=== PATIENT | female | born 1960 | race Caucasian/White ===

== ENCOUNTER 2019-04-14 07:07 | Emergency (ER) | payer OTHER ==
[~2019-04-14] VITALS: Ht 162.6 cm; Wt 61.6 kg
[2019-04-14 07:09] VITALS: Ht 162.6 cm; Wt 61.6 kg
[2019-04-14] MEDS ORDERED: SOD CHLORIDE 0.9% 1,000 ML IV STA (07:21)
[2019-04-14] MEDS ORDERED: RANI150T35 PO (09:08)
--- NOTE | 2019-04-14 09:08 | ERD ---
ER Documentation Chief Complaint Chief Complaint abdominal pain, diarrhea x 10 ; increased bp HPI This is a 49-year-old female with a history of type 2 diabetes who presents to the emergency room for evaluation of abdominal cramping, diarrhea. The patient states she has had her symptoms for the past 2 to 3 days and states that she thinks she saw some blood in her stool. The patient is denying any chest pain at this time, denies any fevers chills or nausea associated with this and came to the emergency room for evaluation of her symptoms. The patient denies any aggravating or relieving factors. ROS All systems reviewed and are negative except as per history of present illness. PMhx/Soc Medical and Surgical Hx: pt denies Surgical Hx History of Surgery: No Hx Neurological Disorder: No Hx Respiratory Disorders: No Hx Cardiac Disorders: Yes (HTN) Hx Psychiatric Problems: No Hx Miscellaneous Medical Probl: No Hx Alcohol Use: No Hx Substance Use: No Hx Tobacco Use: No Smoking Status: Never smoker Physical Exam Vitals Vital Signs Date Temp Pulse Resp B/P (MAP) Pulse Ox O2 O2 Flow FiO2 Time Delivery Rate 04/14/19 59 18 151/74 97 Room Air 07:58 (99) 04/14/19 98.1 63 19 164/76 98 07:09 (105) Physical Exam INITIAL VITAL SIGNS: Reviewed by me GENERAL: The patient is well developed and appropriate for usual state of health in no apparent distress HEENT: Pupils equal, round, and reactive to light. EOMI. There is no scleral icterus. NECK: C-spine is soft and supple, there is no meningismus. There is no cervical lymphadenopathy. LUNGS: Clear to auscultation bilaterally. There are no rales, wheezes or rhonchi. HEART: Regular rate and rhythm, no murmurs, clicks, rubs or gallops. ABDOMEN: Tender to palpation in the right lower quadrant, otherwise soft, non- tender, non-distended. There are bowel sounds in all four quadrants. No rebound or guarding. EXTREMITIES: There is no peripheral cyanosis or edema. No focal swelling or erythema. NEUROLOGICAL: The patient moves all four extremities with 5/5 strength. Cranial nerves II - XII are intact. Normal gait. Alert and oriented SKIN: There is no apparent rash or petechiae. HEME/LYMPHATIC: There is no evidence of excessive bruising or lymphedema. PSYCHIATRIC: The patient does not appear anxious or depressed. Result Diagram: 04/14/19 0730 04/14/19 0730 Results 24 hrs Laboratory Tests Test 04/14/19 07:30 White Blood Count 5.4 10^3/ul Red Blood Count 4.79 10^6/ul Hemoglobin 14.2 g/dl Hematocrit 42.4 % Mean Corpuscular Volume 88.5 fl Mean Corpuscular Hemoglobin 29.6 pg Mean Corpuscular Hemoglobin Concent 33.5 g/dl Red Cell Distribution Width 13.0 % Platelet Count 264 10^3/UL Mean Platelet Volume 8.9 fl Immature Granulocytes % 0.200 % Neutrophils % 53.7 % Lymphocytes % 35.9 % Monocytes % 8.1 % Eosinophils % 1.7 % Basophils % 0.4 % Nucleated Red Blood Cells % 0.0 /100WBC Immature Granulocytes # 0.010 10^3/ul Neutrophils # 2.9 10^3/ul Lymphocytes # 2.0 10^3/ul Monocytes # 0.4 10^3/ul Eosinophils # 0.1 10^3/ul Basophils # 0.0 10^3/ul Nucleated Red Blood Cells # 0.0 10^3/ul Urine Color STRAW Urine Clarity CLEAR Urine pH 6.0 Urine Specific [place] 1.012 Urine Ketones NEGATIVE mg/dL Urine Nitrite NEGATIVE mg/dL Urine Bilirubin NEGATIVE mg/dL Urine Urobilinogen NEGATIVE mg/dL Urine Leukocyte Esterase 1+ Keily/ul Urine Microscopic RBC 1 /HPF Urine Microscopic WBC 4 /HPF Urine Hemoglobin 1+ mg/dL Urine Glucose NEGATIVE mg/dL Urine Total Protein NEGATIVE mg/dl Sodium Level 139 mmol/L Potassium Level 4.0 mmol/L Chloride Level 105 mmol/L Carbon Dioxide Level 23 mmol/L Anion Gap 11 Blood Urea Nitrogen 17 mg/dl Creatinine 0.52 mg/dl Est Glomerular Filtrat Rate mL/min > 60 mL/min Glucose Level 179 mg/dl Calcium Level 8.8 mg/dl Total Bilirubin 0.5 mg/dl Direct Bilirubin 0.00 mg/dl Indirect Bilirubin 0.5 mg/dl Aspartate Amino Transf (AST/SGOT) 31 IU/L Alanine Aminotransferase (ALT/SGPT) 25 IU/L Alkaline Phosphatase 81 IU/L Total Protein 8.1 g/dl Albumin 4.4 g/dl Globulin 3.70 g/dl Albumin/Globulin Ratio 1.18 Lipase 221 U/L Current Medications Medications Dose Sig/Rosy Start Time Status Last (Trade) Ordered Route PRN Stop Time Admin Dose Reason Admin Sodium 1,000 ml @ Q1H STAT 04/14/19 DC 04/14/19 Chloride 1,000 mls/hr IV 07:21 07:45 04/14/19 08:20 Procedures/MDM CT abdomen pelvis without: 1. Nonobstructive nephrolithiasis bilaterally measuring up to 7 mm. No urolithiasis or hydronephrosis. 2. The appendix is not visualized. No inflammatory changes are seen in the right lower quadrant. This 59-year-old female presents to the emergency room for evaluation of abdominal cramping, diarrhea. On my evaluation the patient was afebrile, nontoxic-appearing and hemodynamically stable. The patient did have some tenderness to palpation in the right lower quadrant. An IV was established and the patient was given IV fluids. Lab work was obtained which is within normal limits, the patient underwent a CT of the abdomen pelvis and shows no signs of appendicitis. The patient does have some white blood cells in her urine however I do feel this is a contaminated specimen and she has no urinary complaints at this time. The patient is likely suffering from mild dehydration will be discharged home with a prescription for Zantac to help with any gastritis which may be contributing to her abdominal cramping and diarrhea. Differential diagnoses entertained was broad with potential high acuity. Patient has been evaluated for appendicitis, cholecystitis, and other high risk medical and surgical causes of abdominal pain. Ultimately the patient's evaluation is nondiagnostic. Based on the patient's lack of risk factors, as well as the patient's clinical, laboratory, and imaging data, the patient appears to be low risk for these high risk causes of abdominal pain. Departure Diagnosis: Primary Impression: Abdominal pain Additional Impressions: Abdominal cramping Diarrhea Gastritis Condition: MIR Tiwari DO Apr 14, 2019 09:08
[2019-04-14 09:12] VITALS: BP 127/78; PULSE 62; RESP 18
== END 2019-04-14 09:15 | disposition home or self-care (01) ==
LOC: E/R 07:07
DX: K29.70 Gastritis, unspecified, without bleeding (principal); E11.9 Type 2 diabetes mellitus without complications; I10 Essential (primary) hypertension
CPT/HCPCS: 36415; 74176; 80053; 81001; 83690; 85025; J7030; Z7502